=== PATIENT | female | born 1990 | race Caucasian/White ===

== ENCOUNTER 2016-09-20 12:35 | Outpatient (CLI) | payer OTHER | END 2016-09-20 12:36 | disposition home or self-care (01) | DX: Z36 Encounter for antenatal screening of mother (principal) ==

== ENCOUNTER 2016-11-07 07:20 | Outpatient (CLI) | payer OTHER | END 2016-11-07 07:21 | disposition home or self-care (01) | DX: Z36 Encounter for antenatal screening of mother (principal); O34.82 Maternal care for other abnormalities of pelvic organs, second trimester ==

== ENCOUNTER 2016-11-11 15:01 | Outpatient (CLI) | payer OTHER | END 2016-11-11 15:02 | disposition home or self-care (01) | DX: Z36 Encounter for antenatal screening of mother (principal) ==

== ENCOUNTER 2017-02-02 16:16 | Outpatient (CLI) | payer OTHER ==
[2017-02-02 17:20] VITALS: BP 112/67
== END 2017-02-02 17:00 | disposition home or self-care (01) ==
LOC: WFO 16:16 → OB 16:17 → WFO 17:00
PROVIDERS: ATTEND Obstetrics & Gynecology
DX: O40.3XX0 Polyhydramnios, third trimester, not applicable or unspecified (principal); Z3A.33 33 weeks gestation of pregnancy
CPT/HCPCS: 59025

== ENCOUNTER 2017-02-09 13:51 | Outpatient (CLI) | payer OTHER ==
[2017-02-09 14:04] VITALS: BP 112/64
== END 2017-02-09 14:25 | disposition home or self-care (01) ==
LOC: WFO 13:51 → OB 13:53 → WFO 14:25
PROVIDERS: ATTEND Obstetrics & Gynecology
DX: O40.3XX0 Polyhydramnios, third trimester, not applicable or unspecified (principal); Z3A.34 34 weeks gestation of pregnancy
CPT/HCPCS: 59025

== ENCOUNTER 2017-02-16 14:47 | Outpatient (CLI) | payer OTHER ==
[2017-02-16 15:03] VITALS: BP 104/68
== END 2017-02-16 16:30 | disposition home or self-care (01) ==
LOC: WFO 14:47 → OB 14:50 → WFO 16:30
PROVIDERS: ATTEND Obstetrics & Gynecology
DX: O40.3XX0 Polyhydramnios, third trimester, not applicable or unspecified (principal); Z3A.35 35 weeks gestation of pregnancy
CPT/HCPCS: 59025

== ENCOUNTER 2017-02-23 08:22 | Outpatient (CLI) | payer OTHER ==
[2017-02-23 08:49] VITALS: BP 102/65
== END 2017-02-23 09:06 | disposition home or self-care (01) ==
LOC: WFO 08:22 → OB 08:25 → WFO 09:06
PROVIDERS: ATTEND Obstetrics & Gynecology
DX: O40.3XX0 Polyhydramnios, third trimester, not applicable or unspecified (principal); Z3A.36 36 weeks gestation of pregnancy
CPT/HCPCS: 59025; 87081

== ENCOUNTER 2017-02-23 10:13 | Outpatient (CLI) | payer OTHER | END 2017-02-23 10:14 | disposition home or self-care (01) | LOC: LAB.R 10:13 | PROVIDERS: ATTEND Obstetrics & Gynecology | DX: Z34.83 Encounter for supervision of other normal pregnancy, third trimester (principal) | CPT/HCPCS: 87081 ==

== ENCOUNTER 2017-03-02 14:33 | Outpatient (CLI) | payer OTHER ==
[2017-03-02 14:49] VITALS: BP 114/75
== END 2017-03-02 15:30 | disposition home or self-care (01) ==
LOC: WFO 14:33 → OB 14:35 → WFO 15:30
PROVIDERS: ATTEND Obstetrics & Gynecology
DX: O40.3XX0 Polyhydramnios, third trimester, not applicable or unspecified (principal); Z3A.37 37 weeks gestation of pregnancy
CPT/HCPCS: 59025

== ENCOUNTER 2017-03-03 13:52 | Outpatient (CLI) | payer OTHER ==
[2017-03-03 14:15] VITALS: BP 117/76
[2017-03-03] MEDS ORDERED: SODIUM CHLORIDE FLUSH 0.9% 10 ML SYRINGE IVP ONE (14:28)
[2017-03-03] MEDS ORDERED: TERBUTALINE 1 MG/ML VIAL SUBQ ONE (14:58)
== END 2017-03-03 15:40 | disposition home or self-care (01) ==
LOC: WFO 13:52 → OB 13:54 → WFO 15:40
PROVIDERS: ATTEND Obstetrics & Gynecology
PROC: 10S0XZZ Reposition Products of Conception, External Approach (ICD-10-PCS; principal; 2017-03-03)
DX: O32.2XX0 Maternal care for transverse and oblique lie, not applicable or unspecified (principal); O40.3XX0 Polyhydramnios, third trimester, not applicable or unspecified; Z3A.37 37 weeks gestation of pregnancy
CPT/HCPCS: 59025

== ENCOUNTER 2017-03-09 14:38 | Outpatient (CLI) | payer OTHER ==
[2017-03-09 15:00] VITALS: BP 103/70
== END 2017-03-09 15:30 | disposition home or self-care (01) ==
LOC: WFO 14:38 → OB 15:25 → WFO 15:30
PROVIDERS: ATTEND Obstetrics & Gynecology
DX: O40.3XX0 Polyhydramnios, third trimester, not applicable or unspecified (principal); Z3A.35 35 weeks gestation of pregnancy
CPT/HCPCS: 59025

== ENCOUNTER 2017-03-27 02:10 | Inpatient (IN) | payer OTHER ==
[2017-03-27] MEDS ORDERED: LACTATED RINGERS 1,000 ML IV ONE ×3 (02:55→05:10)
[2017-03-27] MEDS ORDERED: TERBUTALINE 1 MG/ML VIAL SUBQ ONE (02:56)
[2017-03-27 03:05] LABS: BASOPHILS # (AUTO) 0.1 10^3/uL (0.0-0.1); BASOPHILS % (AUTO) 0.8 %; EOSINOPHILS # (AUTO) 0.1 10^3/uL (0.0-0.7); EOSINOPHILS % (AUTO) 0.3 %; HCT - HEMATOCRIT 35.7 % (37.0-47.0); HGB - HEMOGLOBIN 11.9 g/dL (12.0-16.0); LYMPHOCYTES % (AUTO) 20.1 %; MEAN CORPUSCULAR HEMOGLOBIN 29.4 pg (27.0-31.0); MEAN CORPUSCULAR HGB CONC 33.3 g/dL (32.0-36.0); MEAN CORPUSCULAR VOLUME 88.2 fL (81.0-99.0); MEAN PLATELET VOLUME 8.1 fL (7.9-10.8); MONOCYTES # (AUTO) 1.1 10^3/uL (0.0-1.0); MONOCYTES % (AUTO) 7.3 %; NEUTROPHILS # (AUTO) 10.5 10^3/uL (1.5-6.6); NEUTROPHILS % (AUTO) 71.5 %; RED BLOOD COUNT 4.05 10^6/uL (4.20-5.40); RED CELL DISTRIBUTION WIDTH 14.4 % (12.0-15.0); UNCORRECTED WHITE BLOOD COUNT 14.8 x10^3/uL; WHITE BLOOD COUNT 14.8 x10^3/uL (4.8-10.8)
[2017-03-27] MEDS ORDERED: CITRIC ACID/SODIUM CITRATE 15 ML UDC PO ONE (03:22)
[2017-03-27] MEDS ORDERED: SODIUM CHLORIDE FLUSH 0.9% 10 ML SYRINGE IVP PRN (03:23)
[2017-03-27] MEDS ORDERED: TERBUTALINE 1 MG/ML VIAL SUBQ PRN (03:24)
[2017-03-27] MEDS ORDERED: ONDANSETRON 4 MG/2 ML VIAL IVP PRN (03:24)
[2017-03-27] MEDS: LACTATED RINGERS 1,000 ML IV SCH ×2 (03:45→06:49)
[2017-03-27] MEDS ORDERED: ceFAZolin 1 GM in SODIUM CHLORIDE 0.9% MINIBAG 100 ML IV SCH ×4 (04:00)
--- NOTE | 2017-03-27 05:02 | PREOP HISTORY & PHYSICAL ---
DATE OF ADMISSION/SURGERY: 03/27/2017. IDENTIFICATION: This is a 26-year-old G3, P1-0-1-1 with a 41-0/7 week intrauterine . EDC was 03/20, changed by 9-week ultrasound. HISTORY OF PRESENT ILLNESS: This is a patient at [facility] who presented on the morning of 03/27/2017 with complaints of contractions. Initial RN examination showed that the cervix was 6 cm dilated. There was, however, a notation of face presentation. I came to the hospital and reconfirmed that it was indeed a face presentation. However, the patient had progressed to 8 cm dilation, 70% effacement, and -2 station. Currently after terbutaline, her contractions are every 2-3 minutes and are less intense. The baby is very reassuring with the baseline in the one-teens to 120s with a category 1 reactive non-stress test. Currently, there are decelerations, but she did have them prior to the terbutaline. The membranes are bulging and there is no vaginal bleeding. The patient is doing well. She denies any nausea, vomiting, fevers, or chills. PAST MEDICAL HISTORY: None. PAST SURGICAL HISTORY: None. ALLERGIES: NO KNOWN DRUG ALLERGIES. MEDICATIONS: vitamins. SOCIAL HISTORY: She denies tobacco, alcohol, illicit drug use. PAST OBSTETRICAL HISTORY 1. Spontaneous AB in 09/2013. 2. On 12/05/2014, spontaneous vaginal delivery of a viable female infant named Radha. 3. This so far has been complicated by polyhydramnios at 37 weeks with spontaneous resolution at about 39 weeks. This is a female infant with anticipated name of Kristy. The patient started care with us at 9 weeks gestation and has been coming routinely to see us. She has had 15 visits and up until now. PAST GYNECOLOGICAL HISTORY: She denies any abnormal Pap smears. FAMILY HISTORY: Mother was diagnosed with breast cancer at age 43. REVIEW OF SYSTEMS: Negative unless otherwise stated. OBJECTIVE VITAL SIGNS: Temperature is 98.6, heart rate 78, blood pressure 125/86, respirations 20. GENERAL: She is a well-developed, well-nourished female in no apparent distress. She does have pain when she has contractions. Otherwise, she is alert and oriented x3. She is intelligent and very pleasant to speak to. HEENT: Within normal limits. She does wear glasses. CARDIOVASCULAR: Regular. No murmurs or rubs. PULMONARY: Lungs are clear to auscultation bilaterally. ABDOMEN: Gravid, nontender. Estimated weight is 8 pounds. CERVIX: Again, cervical examination shows she is 8 cm dilated, 70% effacement, - 2 station with a face presentation. LABORATORY: Revealed that she is O positive. Antibody screen negative. RPR nonreactive. Rubella immune. Hepatitis B surface antigen nonreactive. Chlamydia and gonorrhea both negative. One hour OGTT is 118. GBS is negative. anatomical survey is consistent with dates and within normal limits. Placenta is posterior. There was a right ovarian cyst measuring 4.4 cm noted. Sequential screen is negative x3. ASSESSMENT 1. A 26-year-old G3, P1-0-1-1 with a 41-0/7 week intrauterine . 2. Active labor. 3. Face presentation. PLAN 1. We will proceed to a delivery. I have discussed with the patient the risks, benefits, alternatives, indications, expectations of a primary delivery. Including in the risks we discussed were infection, hemorrhage, and damage to surrounding organs, which may include, but not limited to an inadvertant laceration, cauterization, or ligation of adjacent intestines, ureters, and bladder. She is an excellent candidate for as her indication for was for malpresentation and she has had a proven pelvis with her first viable . After all of her questions were answered to her satisfaction, she verbalized her desire to proceed with surgery. Consent forms have been signed. 2. CBC, typed and screened has already been sent. 3. Expect to use a Prevena wound VAC. 4. I have called Suzy Hanks and Dr. Earnest Pineda for surgery. JOB #: [id number] EXT JOB #:[id number] MTDD
[2017-03-27] MEDS ORDERED: MAGNESIUM HYDROXIDE 2,400 MG/30 ML UDC PO PRN (05:34)
--- NOTE | 2017-03-27 05:51 | OPERATIVE REPORT ---
Operative Report - General Admit Date: 03/27/17 - Other Other Information/Narrative: Date of Operation: 03/27/2017 Surgeon: Mai Holman DO FACOG Installer Inspector Final: Barbara Briscoe CNM [facility] Health Coordinator: Suzy Hanks CRNA Anesthesia: Spinal Pre-op Dx: 1. 26 yo with a 41w0d IUP 2. Active labor 3. Face presentation 4. Right adnexal cyst Post-op Dx: 1. 26 yo with a 41w0d IUP 2. Active labor 3. Face presentation 4. Right adnexal cyst Procedure: 1. Primary Delivery 2. Right adnexal cystectomy Findings: 1. Single viable female "Teegan" IUP with face presentation 2. Apgars 9/9 3. Right adnexal cyst 4. Normal uterus and left adnexa Specimens: 1. Placenta (to medical waste) 2. Cord blood (to lab) 3. Right adnexal cyst (to pathology) Drains: 1. Saenz catheter 2. Prevena wound vac EBL: 800 mL Complications: None Dictation: [id number]
[2017-03-27] MEDS: ACETAMINOPHEN 500 MG TABLET PO SCH (06:43)
[2017-03-27] MEDS: SIMETHICONE CHEW 80 MG TABLET PO SCH ×2 (06:43→18:03)
[2017-03-27] MEDS: OXYTOCIN/LACTATED RINGERS 250 ML IV SCH ×2 (06:48→06:50)
[2017-03-27] MEDS: CELECOXIB 100 MG CAPSULE PO SCH ×2 (09:51→21:01)
[2017-03-27] MEDS: DOCUSATE SODIUM 100 MG CAPSULE PO SCH ×2 (09:51→21:03)
[2017-03-27] MEDS: oxyCODONE 5 MG TABLET PO PRN ×2 (09:53→21:03)
[2017-03-28] MEDS: ACETAMINOPHEN 500 MG TABLET PO SCH ×3 (00:38→17:08)
[2017-03-28] MEDS: oxyCODONE 5 MG TABLET PO PRN ×4 (05:18→23:37)
--- NOTE | 2017-03-28 07:54 | OPERATIVE REPORT ---
DATE OF SURGERY: 03/27/2017 00:00:00 SURGEON: Mai Holman DO. WIRE BOUND BOX MACHINE OPERATOR: NOEMY Sanford. CONTINUOUS IMPROVEMENT FACILITATOR: Suzy Hanks MD. ANESTHESIA: Spinal. PREOPERATIVE DIAGNOSES 1. A 26-year-old G3, P1-0-1-1 with a 41-0/7 week intrauterine . 2. Active labor. 3. Face presentation. 4. Right adnexal cyst. POSTOPERATIVE DIAGNOSES 1. A 26-year-old G3, P1-0-1-1 with a 41-0/7 week intrauterine . 2. Active labor. 3. Face presentation. 4. Right adnexal cyst. PROCEDURES 1. Primary delivery. 2. Right adnexal cystectomy. FINDINGS 1. Single viable female fetus named Kristy with face presentation. 2. Apgars 9 and 9 at 1 and 5 minutes respectively. Weight is currently pending. 3. Right adnexal cyst. 4. Normal uterus and left adnexa. SPECIMENS 1. Placenta medical waste. 2. Cord blood to lab. 3. Right adnexal cyst to pathology. DRAINS 1. Saenz catheter to gravity. 2. Prevena wound VAC. ESTIMATED BLOOD LOSS: 800 mL. COMPLICATIONS: None. BRIEF HISTORY: This is a patient of [facility] who presented on 03/27/2017 with complaints of contractions. Initial RN examination found that she was 6 cm dilation, but she had a face presentation. On reexamination I found that she had progressed to 8 cm and was still in a face presentation. I recommended to the patient that we proceed to a primary delivery. I discussed with her the risks, benefits, terms, indications, expectations of a primary delivery. Included in these risks were hemorrhage, infection, and inadvertant laceration, cauterization or ligation of adjacent bladder, ureters, and intestines. Though she was undergoing a delivery, she would be an excellent candidate for a should she have any future children since she did have a spontaneous vaginal delivery with her first child. After all of her questions were answered to her satisfaction, she verbalized her desire to proceed with surgery. Consent forms have been signed. OPERATION IN DETAIL: The patient was identified, consented, taken to the operating room where IV access was already in place. She was then given satisfactory spinal anesthesia per Suzy Hanks. Sequential compression devices were placed on the lower extremities and turned on. She was given 1 gram of Ancef for postoperative cellulitis prophylaxis. A Saenz catheter was placed in her bladder and then she was prepped and draped in the normal sterile fashion in the dorsal supine position with a leftward tilt. A timeout was performed, which correctly identified the patient's site of the procedure and the procedure itself. Skin testing found that the spinal was working well. A Pfannenstiel skin incision was made approximately 2 fingerbreadths above the level of the pubic symphysis. This incision was then carried to the underlying layer of fascia and the fascia was then nicked in the midline. The incision was extended laterally. The rectus muscles were then dissected off the fascia. The rectus muscles were entered sharply and the peritoneum entered bluntly. The incision was then extended superiorly and inferiorly. A bladder flap was then created by dissecting off the vesicouterine peritoneum. Hysterotomy was made in the lower uterine segment. Amniotomy revealed clear fluid. With the help of fundal pressure, the 's head delivered through the hysterotomy. The nose and mouth were suctioned with a bulb syringe. Again, with the help of fundal pressure, the nose and mouth were suctioned again. Nuchal cord x1 was reduced. The umbilical cord was doubly clamped and cut and the was then handed off to Dr. Abdulaziz Pineda, the on-call prepress stripper. Cord blood was obtained and sent off. The uterus was then internally massaged and placenta delivered manually. The uterus was then delivered out of the abdomen, cleared of all clots and debris. The hysterotomy was then repaired with 2 sutures of 0 Vicryl, first in a running locked fashion and then in an imbricating fashion via the Lembert stitch. Hemostasis was noted. Attention was then turned towards the right adnexa. Consistent with her earlier radiology report on her anatomical survey, a 4.4 cm right adnexal cyst was noted. It was difficult to note the origin of the cyst, as it seemed to have attachment to both the fallopian tube and the ovary. In any event, incision was made on top of the cyst and the cyst was then carefully dissected off using sharp and blunt technique. There was an area of blood supply attached to the ovary. After the cyst was excised, some bleeding was noted at the ovarian pedicle. Hemostasis was obtained after placing a running stitch of 2-0 Vicryl that originated in the right fimbria and then ended up in the right ovarian pedicle. Hemostasis was noted. Reinspection of the hysterotomy found it to be hemostatically stable. The uterus was then returned to the abdomen and the abdomen was then copiously irrigated. Hemostasis was noted. The fascia was then closed with running stitch of 2-0 Vicryl. The same stitch was used to reapproximate the rectus muscles. The fascia was then closed with 0 Vicryl in a running fashion. Subcuticular tissue was then reapproximated with single interrupted stitches of 0 Vicryl. The skin was then reapproximated with 4-0 Monocryl. Finally, a Prevena wound VAC was placed on the incision and turned on. The patient tolerated the procedure well and was taken back to the recovery room in stable and awake condition. She will be given routine care including scheduled Celebrex, acetaminophen, Colace, and oxycodone. All sponge, lap, and needle counts were correct x2 as per nurse report. JOB #: [id number] EXT JOB #:[id number] MTDD
--- NOTE | 2017-03-28 08:37 | PROVIDER PROGRESS NOTE ---
Subjective - Prog Note Date Prog Note Date: 03/28/17 Prog Note Time: 08:35 - Subjective Pt reports feeling: Improved Subjective: Patient standing over baby who is in the bassinet. Doing well and without complaints. Baby latching well. Lochia improving. Pain tolerable with meds. Urinating and ambulating without difficulty. Would like to try an abdominal binder. Would consider going home either today or tomorrow. Objective - Vital Signs/Intake & Output Reviewed Vital Signs: Yes Vital Signs: Vital Signs x48h Temp Pulse Resp BP BP Pulse Ox 03/28/17 08:00 97.7 F 72 16 113/72 99 03/28/17 05:10 99.0 F 76 20 102/65 98 03/28/17 01:01 20 Intake & Output: Intake & Output 03/25/17 03/26/17 03/27/17 03/28/17 23:59 23:59 23:59 23:59 Intake Total 3300 Output Total 4400 950 Balance -1100 -950 - Objective General Appearance: positive: No acute distress Abdomen: positive: Non-tender (Prevena wound vac intact and working well.) Neurologic/Psychiatric: positive: Oriented x3 - Lab Results Fish Bones: 03/27/17 02:50 Assessment/Plan - Problem List (1) delivery delivered Impression: 26 yo S/p primary CD 03/27/2017 due to face presentation. Normal recovery. Routine care. Try abdominal binder. Instructions given to the patient to care for the wound vac. Return to [facility] 03/30/2017 for removal of wound vac. Anticipate sending the patient home either today or tomorrow with Rx for motrin , acetaminophen, colace and oxycodone. Return for a 2 week incision check and then for a 6 week exam. Call for worsening fevers, chills, abdominal pain or vaginal bleeding. Dictation [id number]
[2017-03-28] MEDS: CELECOXIB 100 MG CAPSULE PO SCH ×2 (08:54→20:57)
[2017-03-28] MEDS: DOCUSATE SODIUM 100 MG CAPSULE PO SCH ×3 (08:54→21:00)
[2017-03-28] MEDS: SIMETHICONE CHEW 80 MG TABLET PO SCH ×2 (08:55→17:08)
[2017-03-29] MEDS: LACTATED RINGERS 1,000 ML IV SCH ×5 (00:33→00:41)
[2017-03-29] MEDS: OXYTOCIN/LACTATED RINGERS 250 ML IV SCH ×7 (00:34→00:42)
[2017-03-29] MEDS: SIMETHICONE CHEW 80 MG TABLET PO SCH ×3 (00:39→06:17)
[2017-03-29] MEDS: ACETAMINOPHEN 500 MG TABLET PO SCH ×4 (00:40→08:36)
[2017-03-29] MEDS: oxyCODONE 5 MG TABLET PO PRN ×2 (06:17→09:59)
[2017-03-29 08:09] VITALS: BP 115/75
[2017-03-29] MEDS: DOCUSATE SODIUM 100 MG CAPSULE PO SCH (08:36)
[2017-03-29] MEDS: CELECOXIB 100 MG CAPSULE PO SCH (08:37)
--- NOTE | 2017-03-29 09:42 | PROVIDER PROGRESS NOTE ---
Subjective - Prog Note Date Prog Note Date: 03/29/17 Prog Note Time: 09:39 - Subjective Pt reports feeling: Improved Subjective: Patient doing well and desires to go home. Marco at bedside. Baby girl Teegan doing well and has gained weight. Ambulating and tolerating regular diet. No fevers or chills. Urinating without difficulty. Pain controlled with po meds. Has appointment tomorrow with me at 3:00 for removal of Prevena wound vac. Objective - Vital Signs/Intake & Output Reviewed Vital Signs: Yes Vital Signs: Vital Signs x48h Temp Pulse Resp BP Pulse Ox 03/29/17 08:06 98.8 F 98 16 115/75 97 03/29/17 03:28 97.9 F 73 16 108/67 97 Intake & Output: Intake & Output 03/26/17 03/27/17 03/28/17 03/29/17 23:59 23:59 23:59 23:59 Intake Total 3300 250 250 Output Total 4400 950 Balance -1100 -700 250 - Objective General Appearance: positive: No acute distress Abdomen: positive: Non-tender (Wound vac intact and working well) Neurologic/Psychiatric: positive: Oriented x3 - Lab Results Fish Bones: 03/27/17 02:50 Assessment/Plan - Problem List (1) delivery delivered Impression: 26 yo S/p primary CD for face presentation Normal recovery Discharge to home Follow up with appointment tomorrow Call for worsening fevers, chills, abdominal pain or vaginal bleeding Has Rx for post op care (ibuprofen, tylenol, colace and oxycodone) Discharge Plan Disposition: 01 Home, Self Care Condition: Good Diet: Regular Activity Restrictions: Activity as Tolerated Shower Restrictions: No Driving Restrictions: Yes (Do not drive after taking oxycodone) Instruction Topics: Labor No Smoking: If you smoke, Please STOP! Call for help.
--- NOTE | 2017-03-29 11:12 | Labor Flowsheet ---
Labor Flowsheet Datetime Report Generated by CPN: 03/29/2017 11:11 Datetime: 03/27/2017 07:45 VITAL SIGNS NBP Sys/Joann/Mean (mmHg): 110 : 64 : 76 Pulse: 78 LaborFlag: Labor Datetime: 03/27/2017 06:29 SpO2 (%): 100 Datetime: 03/27/2017 03:55 UTERINE ACTIVITY Monitor Mode: External Frequency (min): 3-5 Duration (sec): 90-120 Pattern: Normal: <= 5 Contractions in 10 Minutes Resting Tone (Palpate): Relaxed FHR Baseline Rate : 115 Variability: Moderate 6-25 bpm Accelerations: None Decelerations: None Category: Category I Comments: left L_D unit for C/S Datetime: 03/27/2017 03:46 Consults: Anesthesia ANESTHESIA Anesthesia Plans: Spinal COMMUNICATION Communication: Provider at Bedside Provider Notified (Name): Karthikeyan Aube Datetime: 03/27/2017 03:30 ASSESSMENT A Monitor Mode: External US Datetime: 03/27/2017 03:03 Temperature (C): 37.0 Datetime: 03/27/2017 03:00 Quality: Strong MEDICATIONS Tocolytics: Terbutaline 0.25mg Subcutaneous Datetime: 03/27/2017 02:55 Actions for Decelerations: Oxygen Applied VAGINAL EXAM Dilatation (cm): 8.0 Effacement (%): 70 Exam by: Dr. Holman PATIENT CARE Oxygen Amount (LPM): 10 Oxygen Method: Non-Rebreather Datetime: 03/27/2017 02:54 Provider Reviewed Strip: Yes Strip Reviewed by: Dr. Holman Communication Comments: discussing
--- NOTE | 2017-03-29 11:29 | DISCHARGE SUMMARY ---
DATE OF ADMISSION: 03/27/2017 DATE OF DISCHARGE: 03/29/2017 ADMISSION DIAGNOSES: 1. This is a 26-year-old G3, P1-0-1-1, with a 41 and 0/7 weeks intrauterine . 2. Active labor. 3. Face presentation. DIAGNOSES ON DISCHARGE: 1. A 26-year-old G3, P2-0-1-2, status post primary delivery on 2016 secondary to face presentation. 2. Normal recovery. BRIEF HISTORY: The patient is a patient of [facility] who presented on the morning of 03/27/2017 with complaints of contractions and fluid. Though initial RN examination showed she was 6 cm dilated, the baby had a face presentation. The patient underwent a primary delivery and had a viable female named Kristy with Apgars of 9 and 9 at 1 and 5 minutes respectively. weight was 4146 grams. Surgery was remarkable only for a right simple adnexal cyst that was easily excised. EBL was 800 mL and there were no complications. The patient's postoperative course has been unremarkable. She is ambulating and tolerating a regular diet. She is urinating without difficulty and her pain is controlled with oral medications. The patient is doing so well that she is interested in considering discharge to home today assuming that the baby is also doing as well as she is. In any event, patient has been given instructions on care of the Prevena Wound VAC. She is to see me on 03/30/2017, , for removal of her Prevena Wound VAC. In addition she will be given prescriptions for home medications specifically for Motrin, acetaminophen, Colace, and oxycodone. I will anticipate seeing patient in 2 weeks for routine incision check and in 6 weeks for her visit. The patient is to call should she have any worsening fevers, chills, abdominal pain, back pain and bleeding. JOB #: [id number] EXT JOB #:[id number] MTDStar
== END 2017-03-29 10:20 | disposition home or self-care (01) | DRG 766 ==
LOC: WFO 02:10 → OB 02:22 → WFO 02:27 → OB 02:28 → FBP 08:16
PROVIDERS: ADMIT Obstetrics & Gynecology; ATTEND Obstetrics & Gynecology
PROC: 0UB00ZZ Excision of Right Ovary, Open Approach (ICD-10-PCS; 2017-03-27)
PROC: 10D00Z1 Extraction of Products of Conception, Low, Open Approach (ICD-10-PCS; principal; 2017-03-27 03:34)
DX: O48.0 Post-term pregnancy (principal); O64.2XX0 Obstructed labor due to face presentation, not applicable or unspecified; O34.83 Maternal care for other abnormalities of pelvic organs, third trimester; D27.0 Benign neoplasm of right ovary; Z3A.41 41 weeks gestation of pregnancy; Z37.0 Single live birth
CPT/HCPCS: 85025; 86850; 86900; 86901; 88305; 99213